=== PATIENT | female | born 2000 | race Caucasian/White ===

== ENCOUNTER 2022-11-10 03:32 | Day surgery (SDC) | payer BC, SELFPAY ==
[2022-10-30 15:18] VITALS: BMI 29.7
--- NOTE | 2022-10-30 15:41 | PC.NURSE ---
Report to the Outpatient Waiting Room, entrance under the green pavilion located off [facility], at time 0600 on date 11-10-2022. Planned Procedure Time: 0730. Time changes happen often and if your time is changed the preop area will call you the afternoon before. - You and your visitor will be asked to self-screen and do not enter if you have any COVID symptoms. - A mask is optional within the hospital at this time. Patients may have clear liquids (water, carbonated beverages, clear teas, apple juice) until 3 hours prior to surgery with a maximum of 20 ounces. - No food from midnight until time of surgery Take the following medications with a SIP of water the morning of surgery: Buspirone, Fluoxetine, levothyroxine. DO NOT STOP ANY OF YOUR OTHER PRESCRIPTION MEDICATIONS PRIOR TO SURGERY ?EXCEPT THE FOLLOWING Medications to discontinue per physician: Vitamins/Supplements Date to take last dose 11-06-2022 Please no make-up, nail trinidadian, hairspray, perfume, deodorant, or body powder the day of surgery. No jewelry (including any body piercings) or valuables the day of surgery, leave them at home. Please take a shower or bath the night before, or the morning of, surgery with an antibacterial soap. Wear comfortable, loose fitting clothing. - Jewelry must be removed prior to entering the operating room. Rings and piercings that are not removed may be cut off. - The hospital will not accept responsibility for valuables. - Please leave all valuables, including medications, at home the day of surgery. If you are going home after surgery, a licensed milk pickup driver must drive you home. - NO public transportation without another adult if you receive anesthesia. - We recommend that an adult stay with you for 24 hours following discharge. - We also recommend that you do not drive, make important decision, drink alcoholic beverages, or take any drugs that were not prescribed by your health care provider for at least 24 hours after your discharge time. Follow any additional instructions given to you from your surgeon. If you or anyone in your household have experienced Covid symptoms in the past week, please notify your surgeon or the nurse liaison at the phone number below for possible testing. Telephone instructions given to _patient/Yuridia_and asked if any additional questions and then verbalized understanding. Patient advised to call surgeon office or pre surgery nurse liaison [phone] if any additional questions.
[2022-11-10] VITALS (11 sets, daily range): BP systolic 106–133; BP diastolic 65–94; PULSE 88–108; RESP 12–18; TEMP 36.6–36.8; O2SAT 92–100; BMI 30.2
[2022-11-10] MEDS: KETOROLAC 15 MG/ML VIAL (*BKC) IV PUSH (06:44)
[2022-11-10] MEDS: ACETAMINOPHEN 500 MG TABLET 1000 MG PO (06:44)
--- NOTE | 2022-11-10 07:09 | P.PNAN_ITS ---
Anes - Initial Pre Proc Eval Procedure: Operation Date: 11/10/22 07:30 Proposed Procedures p Bilateral Laparoscopic Salpingectomy - Nina Borges MD Date/Time: 11/10/22 07:09 Surgeon: Nina Borges MD Pre Op Diagnosis: deires sterilization Patient Data Age: 22 Gender: F Height: 1.7 m Weight: 87.5 kg Last Vital Signs Temp 36.8 C 11/10/22 06:02 Pulse 101 H 11/10/22 06:02 Resp 18 11/10/22 06:02 BP 133/89 11/10/22 06:02 Pulse Ox 100 11/10/22 06:02 O2 Del Method Room Air 11/10/22 06:02 Allergies Allergy/AdvReac Type Severity Reaction Status Date / Time No Known Allergies Allergy Verified 11/10/22 06:13 Home Medications Medication Instructions Recorded Confirmed Type buspirone 5 mg tablet 5 mg PO DAILY 10/30/22 11/10/22 History buspirone 5 mg tablet 10 mg PO HS 10/30/22 11/10/22 History cyanocobalamin (vitamin B-12) 1,000 mcg PO DAILY 10/30/22 11/10/22 History 1,000 mcg capsule ferrous sulfate 325 mg (65 mg 325 mg PO EVERY OTHER DAY 10/30/22 11/10/22 Histor y iron) tablet (Iron (ferrous sulfate)) fluoxetine 10 mg capsule 20 mg PO DAILY 10/30/22 11/10/22 History levothyroxine 125 mcg tablet 125 mcg PO DAILY 10/30/22 11/10/22 History (Synthroid) norgestimate 0.18 mg/0.215 mg/0.25 1 tablet PO HS 10/30/22 11/10/22 History mg-ethinyl estradiol 25 mcg tablet ([id number]) Patient hx anesthesia problems: none Family hx anesthesia problems: none Results Review: All pre-operative results and documents have been reviewed as part of the pre- operative evaluation. [facility] Social History Social History Smoking status: Never smoker Alcohol intake: current Drinks per week: 1 Substance use type: does not use Living arrangements: with friend(s) Additional living arrangements comments: Lives with boyfriend Spiritual care concerns: No Anes - Eval Final PreProcedure Day of Procedure 11/10/22 07:09 Patient weight: overweight Heart: regular rate and rhythm Lungs: clear to auscultation Airway: Mallampati scale class II Neurological: alert and oriented Last oral intake: >/= 8 hours ASA classification: II Emergent: no Anesthetic plan: proceed Anesthesia type and monitoring: general ETT and standard monitoring Results Review: All pre-operative results and documents have been reviewed as part of the pre- operative evaluation. Informed Consent: The patient's anesthetic plan and its attendant risks and benefits were discussed with the patient/family/POA. Questions were solicited and answers provided to the satisfaction of the patient/family/POA.
--- NOTE | 2022-11-10 07:23 | WPDHPUPDATE1 ---
History and Physical Update Update Date/Time: 11/10/22 07:23 History and Physical has been reviewed, including an updated exam of the patient. There are NO changes in the patient's condition. Risks, benefits, and alternatives have been discussed and questions answered. Patient agrees to proceed with procedure.
--- NOTE | 2022-11-10 07:23 | PM.HPGS ---
History of Present Illness History of Present Illness Consent: Risks, benefits, and alternatives have been discussed and questions answered. Patient agrees to proceed with procedure. Chief complaint: deires sterilization Narrative: Yuridia Ferrell is a 22 year old female who has stated on several occasions that she has never wanted children and never wishes to be . The patient states that she has no plan for biological children and if she regrets her current decision she is willing to adopt. Patient has requested permanent sterilization. Patient is aware that removing her tubes is a permanent and irreversible procedure that will render her unable to naturally conceived. The high regret factor under age 30 is discussed in detail. Risks infection, bleeding, perforation and injury to internal organs, as well failure are reviewed. The patient wishes to proceed with bilateral salpingectomy for sterilization. Review of Systems Review of Systems: not repeated day of surgery; patient states no changes in status PMFSH Past Medical History Medical History (Updated 11/10/22 @ 07:26 by Nina Borges MD) Depression with anxiety Hypothyroid Social History Social History Smoking status: Never smoker Alcohol intake: current Drinks per week: 1 Substance use type: does not use Living arrangements: with friend(s) Additional living arrangements comments: Lives with boyfriend Spiritual care concerns: No Meds Home Medications and Allergies Home Medications Medication Instructions Recorded Confirmed Type buspirone 5 mg tablet 5 mg PO DAILY 10/30/22 11/10/22 History buspirone 5 mg tablet 10 mg PO HS 10/30/22 11/10/22 History cyanocobalamin (vitamin B-12) 1,000 mcg PO DAILY 10/30/22 11/10/22 History 1,000 mcg capsule ferrous sulfate 325 mg (65 mg 325 mg PO EVERY OTHER DAY 10/30/22 11/10/22 History iron) tablet (Iron (ferrous sulfate)) fluoxetine 10 mg capsule 20 mg PO DAILY 10/30/22 11/10/22 History levothyroxine 125 mcg tablet 125 mcg PO DAILY 10/30/22 11/10/22 History (Synthroid) norgestimate 0.18 mg/0.215 mg/0.25 1 tablet PO HS 10/30/22 11/10/22 History mg-ethinyl estradiol 25 mcg tablet ([id number]) Allergies Allergy/AdvReac Type Severity Reaction Status Date / Time No Known Allergies Allergy Verified 11/10/22 06:13 Vital Signs Vital Signs - 24 hr 11/10/22 06:02 Temperature 98.2 F Pulse Rate 101 H Respiratory Rate 18 Blood Pressure 133/89 Pulse Oximetry 100 Oxygen Delivery Room Air Exam Const: General: healthy appearing and alert Orientation/consciousness: patient oriented x3 Resp: Effort & Inspection: normal respiratory effort GI: GI Palp: Yes Soft to palpation, No Tenderness to palpation present (GI) and No Palpable mass present : External Female Exam: normal external appearance Speculum Exam - Vagina: normal appearance of the vagina and normal vaginal discharge Speculum Exam - Cervix: normal appearance of the cervix Bimanual exam- vagina & uterus: uterine size normal and consistency normal Bimanual Exam- Adnexa, other: normal adnexae and No adnexal tenderness Neuro: General: patient oriented x3 Assessment and Plan Assessment and plan (1) Encounter for sterilization: Code(s): Z30.2 - Encounter for sterilization Status: Acute Assessment and Plan: plan to proceed with laparoscopic bilateral salpingectomy
[2022-11-10] MEDS: SCOPOLAMINE 1.5 MG PATCH TRANSDERM (07:26)
[2022-11-10] MEDS: LACTATED RINGERS 1,000 ML 30 ML IV CONT ×2 (07:28→08:23)
--- NOTE | 2022-11-10 08:16 | P.OP_ITS ---
Procedure Note - Detailed Date of Procedure 11/10/22 Pre-op Diagnosis deires sterilization Post-op Diagnosis Same Procedure Performed laparoscopic bilateral salpingectomy Surgeon Nina Borges MD Anesthesia General Findings appearing tubes, uterus, right ovary; large simple cyst on the left ovary Description of Procedure The patient is taken to the operating room and placed under anesthesia in the dorsal lithotomy position. Once anesthesia was deemed adequate her bladder was drained by the staff with a red rubber catheter. She was prepped and draped in the usual sterile fashion. [place] speculum was placed in the vagina and the cervix grasped on the anterior lip with a tenaculum. The acorn manipulator was placed and the speculum removed. Attention was then turned to the abdomen where a vertical skin incision was made at the base of the umbilicus. Abdomen is tented and the Veress needle placed. Opening patient pressure 6mmHg and the water drop test is normal. Pneumoperitoneum was obtained to a patient pressure of 15mmHg. The Veress needle is removed and the 5mm Optiview trocar is placed while tenting the abdomen with towel clamps. Intra-abdominal placement was confirmed with the laparoscope. The patient is placed in Trendelenburg. Two additional 5mm trocars were placed above the symphysis pubis to the left and right under direct visualization. The right tube was grasped at its fimbriated end with an atraumatic grasper and the LigaSure was used to cauterize and cut the mesosalpinx. Once near the cornua the tube was crossclamped and cauterized and cut. The identical procedure was performed on the opposite side. The left ovary was noted to have a fairly large simple cyst. The LigaSure was switch to the hook and the cautery was used to open the cyst. [id number] of clear yellow fluid are drained and removed with a syringe. Good hemostasis is noted at all sites. Pneumoperitoneum was reduced and the trocars are removed. The skin incisions were closed using 4-0 nylon in an interrupted fashion. Vaginal instruments are removed. All instruments, sponges, and needle counts are correct. The patient was awakened from anesthesia and taken to recovery in stable condition. Estimated Blood Loss 5 Drains No Packing No Pathology Yes ( Bilateral fallopian tubes) Complications No immediate complications Condition Stable Disposition PACU
[2022-11-10] MEDS: fentaNYL CITRATE INJ (*CRX) 100 MCG/2 ML VIAL 25 MCG IV PUSH ×4 (09:10→09:25)
[2022-11-10] MEDS: ONDANSETRON INJ 4 MG/2 ML VIAL IV PUSH (10:02)
[2022-11-10] MEDS: oxyCODONE HCL (*CRX) 5 MG TAB IR PO (10:17)
== END 2022-11-10 10:55 | disposition home or self-care (01) ==
PROVIDERS: Visit Provider Obstetrics & Gynecology Gynecology
PROC: (CPT 49320; principal; 2022-11-10 07:30)
DX: Z30.2 Encounter for sterilization (principal); N83.292 Other ovarian cyst, left side
CPT/HCPCS: 58661; 88302; A9270; J1100; J1170; J1885; J2250; J2405; J2704; J2710; J3010; J7120